=== PATIENT | male | born 1990 | race Two or more races ===

== ENCOUNTER 2018-12-03 23:21 | Emergency (ER) | payer MEDICAID ==
[~2018-12-03] VITALS: Ht 170.2 cm; Wt 86.2 kg
[2018-12-04 00:04] VITALS: BP 146/92
--- NOTE | 2018-12-04 00:57 | Emergency Room Report ---
History of Present Illness General Chief Complaint: Flu Like Symptoms Source: Patient Present Illness HPI Is a 27-year-old male with no significant past medical history. He presents with chief complaint of cough congestion and sore throat. Also with ear pain. Onset for last 3 days. Her friend is here for the same thing. The daughter is also sick with the same. Pain is 7 out of 10. Worse with swallowing. Decreased hearing his left ear. No nausea no vomiting. No fever or chills. Allergies: Coded Allergies: No Known Allergies (Unverified , 12/03/18) Patient History Past Medical History: see triage record, old chart reviewed Past Surgical History: none Pertinent Family History: none Social History: Denies: smoking Immunizations: other Reviewed Nursing Documentation: PMH: Agreed; PSxH: Agreed Nursing Documentation-PMH Past Medical History: No Stated History Review of Systems Eye: Denies: eye pain, blurred vision ENT: Reports: ear pain, nose congestion, throat pain; Denies: throat swelling Respiratory: Reports: cough; Denies: shortness of breath Cardiovascular: Denies: chest pain, palpitations Gastrointestinal: Denies: abdominal pain, diarrhea, nausea, vomiting Musculoskeletal: Denies: back pain, joint pain Skin: Denies: rash Neurological: Denies: headache, numbness Endocrine: Denies: increased thirst, increased urine Hematologic/Lymphatic: Denies: easy bruising All Other Systems: negative except mentioned in HPI Physical Exam Vital Signs Date Time Temp Pulse Resp B/P (MAP) Pulse Ox O2 Delivery O2 Flow Rate FiO2 12/03/18 23:49 99.0 84 18 146/92 (110) 98 Room Air vitals unremarkable Sp02 EP Interpretation: reviewed, normal General Appearance: well appearing, no apparent distress, alert Head: normocephalic, atraumatic Eyes: bilateral eye PERRL, bilateral eye EOMI ENT: hearing grossly normal, pharyngeal erythema, other - Bilateral ears impacted with cerumen Neck: full range of motion, supple, no meningismus Respiratory: chest non-tender, lungs clear, normal breath sounds Cardiovascular #1: regular rate, rhythm, no murmur Gastrointestinal: normal bowel sounds, non tender, no mass, no organomegaly, no bruit, non-distended Musculoskeletal: back normal, gait/station normal, normal range of motion Psychiatric: mood/affect normal Skin: warm/dry Procedures Additional Procedure Procedure Narrative Procedure: Cerumen disimpaction Indication: Cerumen impaction Description: I irrigated both ear canal with normal saline. Large hard wax removed. Patient tolerated procedure without a problem. On recheck, left TM is erythematous. No perforation. Medical Decision Making Diagnostic Impression: Primary Impression: URI, acute Additional Impressions: Left otitis media Qualified Codes: H66.92 - Otitis media, unspecified, left ear Impacted cerumen of both ears ER Course Patient with URI symptom and a secondary otitis media. No evidence of perforation. We'll discharge home. Last Vital Signs Date Time Temp Pulse Resp B/P (MAP) Pulse Ox O2 Delivery O2 Flow Rate FiO2 12/04/18 00:04 84 18 Room Air 12/04/18 00:04 99.0 146/92 98 Status: improved Disposition: HOME, SELF-CARE Condition: Stable Scripts Pseudoephedrine Hcl* (SUDAFED*) 60 Mg Tablet 60 MG PO Q6H, #21 TAB Prov: Tonny Black MD 12/04/18 Ibuprofen* (MOTRIN*) 600 Mg Tablet 600 MG ORAL THREE TIMES A DAY, #30 TAB 0 Refills Prov: Tonny Black MD 12/04/18 Amoxicillin/Potassium Clav 875-125* (AUGMENTIN 875-125 TABLET*) 1 Each Tablet 1 TAB ORAL TWICE A DAY, #14 TAB Prov: Tonny Black MD 12/04/18 Referrals: NOT CHOSEN IPA/,REFERRING (PCP) Additional Instructions: Increase fluids. Salt water gargle. Follow-up with your doctor in 7 days. Return if worse. Tonny Black MD Dec 04, 2018 00:57
[2018-12-04] MEDS ORDERED: IBUPROFEN600 MG ORAL (01:01)
[2018-12-04] MEDS ORDERED: AUGMENTIN 875-1 EAC1 ORAL (01:01)
[2018-12-04] MEDS ORDERED: PSEUDOEPHEDRINE60 MG PO (01:01)
[2018-12-04 01:09] VITALS: BP 146/92
== END 2018-12-04 01:09 | disposition home or self-care (01) ==
LOC: EMR 12-04 00:11
DX: J06.9 Acute upper respiratory infection, unspecified (principal); H66.92 Otitis media, unspecified, left ear; H61.23 Impacted cerumen, bilateral
CPT/HCPCS: 69209; 99282; Z7502